=== PATIENT | female | born 1985 | race Two or more races ===

== ENCOUNTER 2016-12-05 11:32 | Emergency (ER) | payer MEDICAID ==
[2016-12-05 11:52] VITALS: BP 113/73
== END 2016-12-05 12:16 | disposition home or self-care (01) ==
LOC: ED 11:32
DX: J01.90 Acute sinusitis, unspecified (principal)

== ENCOUNTER 2017-01-10 19:29 | Emergency (ER) | payer MEDICAID ==
[2017-01-10 22:55] LABS: BASOPHIL % 0.5 % (0-2); PLATELET COUNT 323 x10^3mcL (130-400); RED CELL DISTRIBUTION WIDTH 13.4 % (11.5-14.5)
[2017-01-10 23:04] LABS: CALCIUM 8.7 mg/dL (8.5-10.1); CARBON DIOXIDE 27.3 mmol/L (21-32); CHLORIDE SERUM 103 mmol/L (98-107); CREATININE SERUM 0.6 mg/dL (0.6-1.0); GFR1 > 60 mL/min; GLUCOSE SERUM 94 mg/dL (74-106); POTASSIUM SERUM 3.8 mmol/L (3.5-5.1); SODIUM SERUM 139 mmol/L (136-145)
[2017-01-10 23:08] LABS: ALBUMIN 3.8 g/dL (3.4-5.0); ALKALINE PHOSPHATASE 80 U/L (46-116); ALT/SGPT 32 U/L (14-59); AMYLASE 53 U/L (25-115); AST/SGOT 19 U/L (15-37); BILIRUBIN TOTAL 0.2 mg/dL (0.20-1.00); LIPASE 186 IU/L (73-393); TOTAL PROTEIN, SERUM 7.3 g/dL (6.4-8.2)
[2017-01-11 00:31] VITALS: BP 113/75
== END 2017-01-11 00:31 | disposition home or self-care (01) ==
LOC: ED 19:29
PROVIDERS: Emergency Medicine
DX: R10.13 Epigastric pain (principal); R11.10 Vomiting, unspecified
CPT/HCPCS: J2270; J2405

== ENCOUNTER 2017-03-07 11:45 | Emergency (ER) | payer MEDICAID ==
[2017-03-07 11:48] VITALS: BP 109/53
== END 2017-03-07 12:04 | disposition left against medical advice (07) ==
LOC: ED 11:45
DX: Z53.21 Procedure and treatment not carried out due to patient leaving prior to being seen by health care provider (principal)

== ENCOUNTER 2017-09-01 21:01 | Emergency (ER) | payer MEDICAID ==
[~2017-09-01] VITALS: Ht 157.5 cm; Wt 59.4 kg
[2017-09-01 21:18] VITALS: Ht 157.5 cm; Wt 59.4 kg
[2017-09-02 01:48] LABS: PLATELET COUNT 336 x10^3mcL (130-400)
[2017-09-02 01:50] LABS: BASOPHIL % 3.3 % (0-2)
[2017-09-02 02:03] LABS: UA SPECIFIC GRAVITY <=1.005 (1.005-1.035); microscopic required? YES; urine erythrocyte 3+ (NEGATIVE)
[2017-09-02 02:06] LABS: CALCIUM 8.9 mg/dL (8.5-10.1); CARBON DIOXIDE 25.8 mmol/L (21-32); CHLORIDE SERUM 103 mmol/L (98-107); CREATININE SERUM 0.7 mg/dL (0.6-1.0); GFR1 > 60 mL/min; GLUCOSE SERUM 177 mg/dL (74-106); POTASSIUM SERUM 3.4 mmol/L (3.5-5.1); SODIUM SERUM 137 mmol/L (136-145)
[2017-09-02 02:11] LABS: ALBUMIN 3.7 g/dL (3.4-5.0); ALKALINE PHOSPHATASE 59 U/L (46-116); ALT/SGPT 19 U/L (14-59); AST/SGOT 15 U/L (15-37); BILIRUBIN TOTAL 0.25 mg/dL (0.20-1.00); LIPASE 178 IU/L (73-393); TOTAL PROTEIN, SERUM 7.3 g/dL (6.4-8.2)
[2017-09-02 03:54] VITALS: BP 111/68
== END 2017-09-02 03:54 | disposition home or self-care (01) ==
LOC: ED 21:01
PROVIDERS: Emergency Medicine
DX: N39.0 Urinary tract infection, site not specified (principal); Z87.19 Personal history of other diseases of the digestive system
CPT/HCPCS: 36415; J0696; J1885

== ENCOUNTER 2018-12-30 18:33 | Emergency (ER) | payer MEDICAID ==
[~2018-12-30] VITALS: Ht 152.4 cm; Wt 58.5 kg
[2018-12-30 18:40] VITALS: Ht 152.4 cm; Wt 58.5 kg
[2018-12-30 22:42] VITALS: BP 110/70
== END 2018-12-30 22:42 | disposition home or self-care (01) ==
LOC: ED 18:33
DX: S56.811A Strain of other muscles, fascia and tendons at forearm level, right arm, initial encounter (principal); R21 Rash and other nonspecific skin eruption; R55 Syncope and collapse; W22.8XXA Striking against or struck by other objects, initial encounter; Y93.89 Activity, other specified; Y92.89 Other specified places as the place of occurrence of the external cause; Y99.8 Other external cause status
CPT/HCPCS: J1885; Q0163

== ENCOUNTER 2019-09-27 00:21 | Emergency (ER) | payer MEDICAID ==
[~2019-09-27] VITALS: Ht 154.9 cm; Wt 59.9 kg
[2019-09-27 00:26] VITALS: Ht 154.9 cm; Wt 59.9 kg
[2019-09-27 03:47] VITALS: BP 130/78
== END 2019-09-27 03:47 | disposition home or self-care (01) ==
LOC: ED 00:21
DX: J20.9 Acute bronchitis, unspecified (principal); J02.9 Acute pharyngitis, unspecified
CPT/HCPCS: 87804